=== PATIENT | male | born 1950 | race Caucasian/White ===

== ENCOUNTER → 2020-12-16 13:54 | Outpatient (CLI) | payer OTHER ==
[~2020-12-16 13:54] MED LIST: CALCIUM PO; CVS DAILY MULT1 EAC2 PO; MIRALAX17 GM PO; NEURONTIN300 MG PO; TYLENOL ARTHRI650 MG PO; ULTRAM50 MG PO
== END | disposition home or self-care (01) ==
LOC: LAB 13:54
PROVIDERS: ATTEND Surgery
DX: Z20.818 Contact with and (suspected) exposure to other bacterial communicable diseases (principal)

== ENCOUNTER 2020-12-17 10:58 | Day surgery (SDC) | payer OTHER ==
[~2020-12-17 10:58] MED LIST changes: -MIRALAX17 GM PO; -NEURONTIN300 MG PO; -TYLENOL ARTHRI650 MG PO; -ULTRAM50 MG PO
[2020-12-17] MEDS ORDERED: MIRALAX17 GM PO ×2 (15:45)
[2020-12-17] MEDS ORDERED: ULTRAM50 MG PO ×2 (15:45)
[2020-12-17] MEDS ORDERED: TYLENOL ARTHRI650 MG PO ×2 (15:45)
[2020-12-17] MEDS ORDERED: NEURONTIN300 MG PO ×2 (15:45)
== END 2020-12-17 19:35 | disposition home or self-care (01) ==
LOC: CIR.AMB 10:58
PROVIDERS: ATTEND Surgery
DX: K42.0 Umbilical hernia with obstruction, without gangrene (principal); K40.90 Unilateral inguinal hernia, without obstruction or gangrene, not specified as recurrent; Z20.822 Contact with and (suspected) exposure to COVID-19